=== PATIENT | female | born 1990 | race Caucasian/White ===

== ENCOUNTER 2017-05-31 13:30 | Emergency (ER) | payer OTHER ==
[~2017-05-31] VITALS: Ht 162.6 cm; Wt 100.5 kg
[2017-05-31 13:34] VITALS: BP 156/90
[2017-06-01 11:19] LABS: HEPATITIS B SURFACE ANTIBODY POSITIVE (POSITIVE)
[2017-06-01 11:43] LABS: HIV SCREEN CENTAUR EXPOSED NEGATIVE (NEGATIVE)
== END 2017-05-31 15:08 | disposition home or self-care (01) ==
LOC: M ED 13:30
DX: Z77.21 Contact with and (suspected) exposure to potentially hazardous body fluids (principal); M06.9 Rheumatoid arthritis, unspecified

== ENCOUNTER → 2017-11-18 | Outpatient (CLI) | payer OTHER ==
[2017-11-18 12:23] LABS: HEPATITIS B SURFACE ANTIBODY POSITIVE (POSITIVE)
[2017-11-18 12:33] LABS: RUBELLA IgG QUALITATIVE IMMUNE (IMMUNE)
[2017-11-19 11:13] LABS: RUBEOLA IgG ANTIBODY >300.0 AU/mL (Immune >29.9)
[2017-11-19 11:13] LABS: HERPES ZOSTER, VARICELLA IgG 1739 index (Immune >165)
== END ==
LOC: M LAB 10:52
DX: Z02.0 Encounter for examination for admission to educational institution (principal)
CPT/HCPCS: 86762

== ENCOUNTER 2018-12-10 08:14 | Emergency (ER) | payer OTHER ==
[~2018-12-10] VITALS: Ht 162.6 cm; Wt 109.1 kg
[2018-12-10] MEDS ORDERED: FEXO180T58 (08:21)
[2018-12-10] MEDS ORDERED: HYDR200T3 (08:21)
[2018-12-10] MEDS ORDERED: ADV250INH (08:21)
[2018-12-10] MEDS ORDERED: dexameTHASONE 4 MG/ML 1ML VIAL (J1100) IM ONE (08:45)
[2018-12-10] MEDS ORDERED: diphenhydrAMINE 25 MG CAP PO ONE (08:45)
[2018-12-10 08:52] VITALS: BP 131/79
[2018-12-10] MEDS ORDERED: PRED20TA PO (09:00)
== END 2018-12-10 09:07 | disposition home or self-care (01) ==
LOC: M ED 08:14
DX: T78.40XA Allergy, unspecified, initial encounter (principal); Y92.9 Unspecified place or not applicable; Y93.9 Activity, unspecified; J45.909 Unspecified asthma, uncomplicated; M06.9 Rheumatoid arthritis, unspecified
CPT/HCPCS: 99283; J1100

== ENCOUNTER 2018-12-14 14:46 | Emergency (ER) | payer OTHER ==
[~2018-12-14] VITALS: Ht 165.1 cm; Wt 109.1 kg
[~2018-12-14 14:46] MED LIST: ADV250INH; FEXO180T58; HYDR200T3; PRED20TA PO
[2018-12-14] MEDS ORDERED: NS 1,000 ML IV ONE (15:30)
[2018-12-14] MEDS ORDERED: ONDANSETRON 4MG/2ML VIAL (J2405) IV ONE (15:30)
[2018-12-14 16:17] LABS: BASO % 0.3 % (0.0-1.0); EOS # 0.1 10^3/uL (0.0-0.50); HEMATOCRIT 50.9 % (36.0-47.0); HEMOGLOBIN 17.6 g/dl (12.0-15.5); LYMPH % 6.9 % (24.0-44.0); MEAN CORPUSCULAR HGB CONC 34.6 g/dl (32.0-36.5); MEAN CORPUSCULAR VOLUME 89.8 fl (80.0-96.0); MONO # 0.8 10^3/uL (0.0-0.8); MONO % 5.4 % (0.0-5.0); NEUTROPHILS # 12.6 10^3/uL (1.8-7.7); NEUTROPHILS % 86.1 % (36.0-66.0); PLATELET COUNT, AUTOMATED 318 10^3/uL (150-450); RED BLOOD COUNT 5.67 10^6/uL (4.00-5.40); WHITE BLOOD COUNT 14.6 10^3/uL (4.0-10.0)
[2018-12-14 16:46] LABS: HCG, SERUM QUALITATIVE NEGATIVE (NEGATIVE)
[2018-12-14 16:55] LABS: ALBUMIN 3.9 GM/DL (3.2-5.2); ALT/SGPT 38 U/L (12-78); AMYLASE 39 U/L (25-115); BILIRUBIN,DIRECT 0.1 MG/DL (0.0-0.2); BILIRUBIN,TOTAL 0.6 MG/DL (0.2-1.0); BLOOD UREA NITROGEN 15 MG/DL (7-18); CALCIUM LEVEL 9.3 MG/DL (8.5-10.1); CARBON DIOXIDE LEVEL 27 MEQ/L (21-32); CHLORIDE LEVEL 105 MEQ/L (98-107); CREATININE FOR GFR 1.27 MG/DL (0.55-1.30); GLOMERULAR FILTRATION RATE 53.7 (>60); GLUCOSE, FASTING 106 MG/DL (70-100); LIPASE 119 U/L (73-393); POTASSIUM SERUM 3.9 MEQ/L (3.5-5.1); SODIUM LEVEL 141 MEQ/L (136-145); TOTAL PROTEIN 7.6 GM/DL (6.4-8.2)
[2018-12-14] MEDS ORDERED: KETOROLAC 30 MG/ML VIAL (J1885) IV ONE (18:15)
[2018-12-14] MEDS ORDERED: ONDA4TAB6 PO (18:44)
[2018-12-14 19:32] VITALS: BP 126/78
== END 2018-12-14 19:25 | disposition home or self-care (01) ==
LOC: M ED 14:46
DX: A08.11 Acute gastroenteropathy due to Norwalk agent (principal); R11.2 Nausea with vomiting, unspecified; R19.7 Diarrhea, unspecified; E86.0 Dehydration; J45.909 Unspecified asthma, uncomplicated; Z79.899 Other long term (current) drug therapy; Z88.0 Allergy status to penicillin; Z88.1 Allergy status to other antibiotic agents
CPT/HCPCS: 36415; 80048; 80076; 82150; 83690; 84703; 85025; 87507; 96374; 96375; 99284; J1885; J2405

== ENCOUNTER → 2019-05-04 | Outpatient (REF) ==
[~2019-05-04] MED LIST changes: +ONDA4TAB6 PO
[2019-05-04 17:11] LABS: BASO % 0.3 % (0.0-1.0); EOS # 0.2 10^3/uL (0.0-0.50); EOS % 2.9 % (0.0-3.0); HEMATOCRIT 43.9 % (36.0-47.0); LYMPH # 2.3 10^3/uL (1.5-6.5); LYMPH % 39.2 % (24.0-44.0); MEAN CORPUSCULAR HEMOGLOBIN 30.5 pg (27.0-33.0); MEAN CORPUSCULAR HGB CONC 34.2 g/dl (32.0-36.5); MEAN CORPUSCULAR VOLUME 89.4 fl (80.0-96.0); MONO # 0.5 10^3/uL (0.0-0.8); MONO % 7.8 % (0.0-5.0); NEUTROPHILS # 2.9 10^3/uL (1.8-7.7); NEUTROPHILS % 49.6 % (36.0-66.0); PLATELET COUNT, AUTOMATED 304 10^3/uL (150-450); RED BLOOD COUNT 4.91 10^6/uL (4.00-5.40); WHITE BLOOD COUNT 5.9 10^3/uL (4.0-10.0)
== END ==
LOC: M LAB REF 16:38
PROVIDERS: ATTEND Allergy & Immunology Allergy
DX: J45.30 Mild persistent asthma, uncomplicated (principal)